=== PATIENT | male | born 2000 | race Caucasian/White ===

== ENCOUNTER 2018-05-21 18:12 | Emergency (ER) | payer BC ==
[2018-05-21] MEDS ORDERED: Ondansetron ODT TAB* 4 MG PO ONE (18:28)
[2018-05-21] MEDS ORDERED: HYDROcodone/ACETAMIN 5-325 MG* 1 TAB PO ONE (18:28)
[2018-05-21 18:32] VITALS: BP 100/57
--- NOTE | 2018-05-21 18:40 | UC ---
Elbow Pain - HPI Summary HPI Summary: Slipped fell and landed on right arm just prior to arrival about 1800-- immediate pain right elbow - History of Current Complaint Chief Complaint: UCUpperExtremity Stated Complaint: R ELBOW INJURY Time Seen by Provider: 05/21/18 18:23 Hx Obtained From: Patient Mechanism of Injury: fall Onset/Duration: Minutes, Traumatic Pain Intensity: 10 Pain Scale Used: 0-10 Numeric Location Of Pain: Is Discrete @ - right elbow Character: Unable to Describe Aggravating Factor(s): Movement Alleviating Factor(s): Nothing Associated Signs And Symptoms: Positive: Swelling - -deformity - Allergies/Home Medications Allergies/Adverse Reactions: Allergies Allergy/AdvReac Type Severity Reaction Status Date / Time amoxicillin Allergy Intermediate Hives Verified 05/21/18 18:33 Penicillins Allergy Intermediate Hives Verified 05/21/18 18:33 Home Medications: Home Medications Ibuprofen TAB* [Motrin TAB* 600 MG] 05/21/18 [History] PMH/Surg Hx/FS Hx/Imm Hx Previously Healthy: Yes - Surgical History Surgical History: None - Family History Known Family History: Positive: None - Social History Occupation: Student Lives: Dormitory/Roommates Alcohol Use: Weekly Substance Use Type: Marijuana Smoking Status (MU): Never Smoked Tobacco Review of Systems Constitutional: Negative Skin: Negative Eyes: Negative ENT: Negative Respiratory: Negative Cardiovascular: Negative Gastrointestinal: Negative Genitourinary: Negative Motor: Negative Neurovascular: Negative Musculoskeletal: Arthralgia - right elbow, Other: - deformity distal humerous Neurological: Negative Psychological: Negative Is Patient Immunocompromised?: No All Other Systems Reviewed And Are Negative: Yes Physical Exam Triage Information Reviewed: Yes Appearance: Well-Appearing, Well-Nourished, Pain Distress Vital Signs: Initial Vital Signs Temp 98.6 F 05/21/18 18:24 Pulse 53 05/21/18 18:24 Resp 22 05/21/18 18:24 BP 100/57 05/21/18 18:24 Pulse Ox 99 05/21/18 18:24 Vital Signs Reviewed: Yes Eye Exam: Normal Eyes: Positive: Conjunctiva Clear ENT Exam: Normal ENT: Positive: Normal ENT inspection, Hearing grossly normal. Negative: Trismus , Muffled voice, Hoarse voice Dental Exam: Normal Neck exam: Normal Neck: Positive: Supple, Nontender Respiratory Exam: Normal Respiratory: Positive: Chest non-tender, No respiratory distress, No accessory muscle use Cardiovascular Exam: Normal Cardiovascular: Positive: RRR, Pulses Normal, Brisk Capillary Refill Musculoskeletal Exam: Other Musculoskeletal: Positive: No Edema, Strength Limited @ - right elbow, ROM Limited @ - right elbow, Other: - deformity right elbow/distal humerous Neurological Exam: Normal Psychological Exam: Normal Skin Exam: Normal Diagnostics - Radiology No standard instances Xray Interpretation: Positive (See Comments) - dislocation right elbow Radiology Interpretation Completed By: ED Physician Elbow Pain Course/Dx - Course Course Of Treatment: patient refuses EMS. begining to feel better with pain med- --will go to [facility] [place] ed for definative care of dislocated elbow - Differential Dx/Diagnosis Provider Diagnoses: right elbow dislocation Discharge - Sign-Out/Discharge Documenting (check all that apply): Patient Departure All imaging exams completed and their final reports reviewed: No - Discharge Plan Condition: Stable Disposition: HOME Patient Education Materials: Elbow Dislocation (ED) Referrals: [facility] Jim SPAULDING [Primary Care Provider] - As Soon As Possible Additional Instructions: please go directly to Emergency Department at [facility] for further care - Billing Disposition and Condition Condition: STABLE Disposition: Home
--- NOTE | 2018-05-22 08:05 | UC ---
- Progress Note Progress Note: REPORT AND IMPRESSION: #. Posterior dislocation of the ulna and radius relative to the humerus at the elbow. Alignment at the proximal radial ulnar joint appears maintained. #. No fracture visualized. #. Joint effusion and diffuse soft tissue swelling. Pt was advised to go to ED. He went and appears that his elbow was reduced. Discharge - Sign-Out/Discharge Documenting (check all that apply): Post-Discharge Follow Up All imaging exams completed and their final reports reviewed: Yes - Discharge Plan Condition: Stable Disposition: HOME Patient Education Materials: Elbow Dislocation (ED) Referrals: [facility] Jim SPAULDING [Primary Care Provider] - As Soon As Possible Additional Instructions: please go directly to Emergency Department at [facility] for further care - Billing Disposition and Condition Condition: STABLE Disposition: Home
--- NOTE | 2018-05-22 08:37 | RAD ---
INDICATION: Injury /fall playing soccer. Resulting deformity at the RIGHT elbow. COMPARISON: No relevant prior exams available on the [facility] PACS for comparison. TECHNIQUE: AP and lateral views RIGHT elbow. REPORT AND IMPRESSION: #. Posterior dislocation of the ulna and radius relative to the humerus at the elbow. Alignment at the proximal radial ulnar joint appears maintained. #. No fracture visualized. #. Joint effusion and diffuse soft tissue swelling. R0
== END 2018-05-21 19:10 | disposition home or self-care (01) ==
LOC: UCEAST 18:12
DX: S53.104A Unspecified dislocation of right ulnohumeral joint, initial encounter (principal); W18.30XA Fall on same level, unspecified, initial encounter; Y92.9 Unspecified place or not applicable
CPT/HCPCS: 99202; A9270-GY; G0463

== ENCOUNTER 2018-05-21 19:32 | Emergency (ER) | payer SELFPAY ==
[2018-05-21] MEDS ORDERED: Propofol* 10 MG/ML 20 ML BTL IV PUSH ONE (21:00)
[2018-05-21] MEDS ORDERED: Propofol* 500 MG/50 ML BTL ONE (21:04)
--- NOTE | 2018-05-21 21:33 | ED ---
Upper Extremity Pain - HPI Summary HPI Summary: 17 year old M from Urgent Care to [facility] with male friend complains of right elbow pain s/p slipping and landing on right arm in road hole while playing soccer at 14:00 today. The patient rates the pain 6/10 in severity. Symptoms aggravated by movement. Symptoms alleviated by nothing. Patient denies right hand numbness and right arm numbness. He had xray done at which showed dislocated right elbow. Patient was given Zofran ODT and narcotic pain medication at . - History of Current Complaint Chief Complaint: EDExtremityUpper Stated Complaint: RT ELBOW INJURY Time Seen by Provider: 05/21/18 20:24 Hx Obtained From: Patient Mechanism Of Injury: Other - slipping and landing on right arm in road hole while playing soccer at 14:00 today. Onset/Duration: Started Hours Ago - 14:00 today, Still Present Timing: Constant Severity Currently: Moderate Pain Location: Elbow Aggravating Factor(s): Movement Alleviating Factor(s): Nothing Associated Signs & Symptoms: Positive: Negative - right hand numbness and right arm numbness - Allergies/Home Medications Allergies/Adverse Reactions: Allergies Allergy/AdvReac Type Severity Reaction Status Date / Time amoxicillin Allergy Hives Verified 05/21/18 19:35 Penicillins Allergy Hives Verified 05/21/18 19:35 Home Medications: Home Medications NK [No Home Medications Reported] 05/21/18 [History Confirmed 05/21/18] PMH/Surg Hx/FS Hx/Imm Hx Previously Healthy: Yes Endocrine/Hematology History: Denies: Hx Diabetes Cardiovascular History: Denies: Hx Hypertension - Immunization History Immunizations Up to Date: Yes Infectious Disease History: No Infectious Disease History: Denies: Traveled Outside the [place] in Last 30 Days - Family History Known Family History: Negative: Blood Disorder - Social History Alcohol Use: Weekly Hx Substance Use: Yes Substance Use Type: Reports: Marijuana Hx Tobacco Use: Yes Smoking Status (MU): Light Every Day Tobacco Smoker Review of Systems Positive: Other - right elbow pain Neurological: Negative - right hand numbness and right arm numbness All Other Systems Reviewed And Are Negative: Yes Physical Exam - Summary Physical Exam Summary: Appearance: Well-appearing, Well-nourished, lying in bed comfortable Skin: Warm, dry, no obvious rash Eyes: sclera anicteric, no conjunctival pallor ENT: mucous membranes moist Neck: deferred Respiratory: No signs of respiratory distress Cardiovascular: Appears well perfused, pulses are nml Abdomen: deferred Musculoskeletal: The elbow has an obvious posterior dislocation. Neurovascular distal to dislocation is in tact. Normal sensorimotor function. Neurological: Awake and alert, mentation is normal, speech is fluent and appropriate Psychiatric: affect is normal, does not appear anxious or depressed Triage Information Reviewed: Yes Vital Signs On Initial Exam: Initial Vitals Temp Pulse Resp BP Pulse Ox 97.6 F 54 18 113/87 100 05/21/18 19:35 05/21/18 19:35 05/21/18 19:35 05/21/18 19:35 05/21/18 19:35 Vital Signs Reviewed: Yes Procedures - Procedure Summary Procedure Summary: Indication: Reduction of dislocated elbow ASA Class: 1 Mallampati Classification: 1 Last PO intake: 4 hours ago Medication Used: Propofol, 200 mg total in increments Complications: none Pt returned to normal LOC without problems. - Splinting Right Upper Extremity Location: right posterior long arm splint Hand-Made Type: orthoglass Pre-Proc Neuro Vasc Exam: normal Post-Proc Neuro Vasc Exam: normal Diagnostics - Vital Signs Vital Signs Temp Pulse Resp BP Pulse Ox 05/21/18 19:35 97.6 F 54 18 113/87 100 - Laboratory Lab Statement: Any lab studies that have been ordered have been reviewed, and results considered in the medical decision making process. Course/Dx - Diagnoses Provider Diagnoses: Dislocation of right elbow Discharge - Sign-Out/Discharge Documenting (check all that apply): Patient Departure - Discharge - Discharge Plan Condition: Improved Disposition: HOME Patient Education Materials: Elbow Dislocation (ED), Moderate Sedation (ED) Referrals: Brent Soto MD [Medical Doctor] - 1 Week - Billing Disposition and Condition Condition: IMPROVED Disposition: Home - Attestation Statements Document Initiated by Scribe: Yes Documenting Scribe: Betzaida Kenney Provider For Whom Barry is Documenting (Include Credential): Zac Judd MD Scribe Attestation: Betzaida Shepard, scribed for Zac Judd MD on 05/23/18 at 0120. Scribe Documentation Reviewed: Yes Provider Attestation: The documentation as recorded by the scribeBetzaida accurately reflects the service I personally performed and the decisions made by me, Zac Judd MD
[2018-05-21 22:33] VITALS: BP 127/71
== END 2018-05-21 23:05 | disposition home or self-care (01) ==
LOC: MERGE 19:32 → ED 19:32
DX: S53.104A Unspecified dislocation of right ulnohumeral joint, initial encounter (principal); M25.521 Pain in right elbow; Z88.0 Allergy status to penicillin; F17.210 Nicotine dependence, cigarettes, uncomplicated; W01.0XXA Fall on same level from slipping, tripping and stumbling without subsequent striking against object, initial encounter; Y93.66 Activity, soccer; Y92.9 Unspecified place or not applicable
CPT/HCPCS: 96374; 99285; J2704